=== PATIENT | female | born 1980 | race Caucasian/White ===

== ENCOUNTER 2018-05-09 03:04 | Inpatient (IN) | payer MEDICAID, OTHER ==
[2018-05-09] MEDS ORDERED: AMPICILLIN/NS 2 GM/100 ML 2 GM/100 ML BAG IV ONE ×2 (03:18→03:57)
[2018-05-09] MEDS: PITOCin/NS 20 UNIT/1000ML DRIP 20 UNITS/1,000 ML BAG IV SCH ×2 (03:38→04:21)
[2018-05-09] MEDS ORDERED: LACTATED RINGERS 1,000 ML IV SCH (04:00)
[2018-05-09] MEDS ORDERED: PITOCin/NS 20 UNIT/1000ML DRIP 20 UNITS/1,000 ML BAG IV SCH (04:00)
[2018-05-09] MEDS ORDERED: DULCOLAX PR PRN (04:01)
[2018-05-09] MEDS ORDERED: MILK OF MAGNESIA PO PRN (04:01)
[2018-05-09] MEDS ORDERED: TYLENOL PO PRN (04:01)
[2018-05-09] MEDS ORDERED: PHENERGAN PO PRN (04:01)
[2018-05-09] MEDS ORDERED: BENADRYL PO PRN (04:01)
[2018-05-09] MEDS ORDERED: LANSINOH TP PRN (04:01)
[2018-05-09] MEDS ORDERED: TUCKS PAD TP PRN (04:01)
--- NOTE | 2018-05-09 04:13 | History and Physical Report ---
History of Present Illness Date of examination: 05/09/18 Date of admission: 05/09/18 03:07 Chief complaint: Labor History of present illness: 37 year old presents to L&D in active labor 10 cm dilated and feeling urge to push. States no leaking of fluid or vaginal bleeding. Patient received care at [facility]. significant for the following: abnormal 1 hour sugar test (normal 3 hour OGTT); GBS unknown (not resulted on chart); marginal placenta (resolved). labs are as follows: O+, antibody screen negative, rubella immune, RPR nonreactive, hepatitis B surface antigen negative, HIV negative, GC/CT negative, quad negative, 1 hour sugar test 159 (normal 3 hour OGTT), GBS unknown, pap negative. Past History Past Medical History: no pertinent history Past Surgical History: no surgical history MEDICAL CARE MANAGER History: denies: abnormal PAP smear, chlamydia, gonorrhea, hepatitis B, hepatitis C, herpes, HIV, syphilis, trichomonas Family/Genetic History: none Social history: , lives with family, full code. denies: smoking, alcohol abuse, prescription drug abuse, IV drug use - Obstetrical History Expected Date of Delivery: 05/21/18 Actual Gestation: 38 Week(s) 2 Day(s) : 5 Para: 3 Hx # Term Pregnancies: 4 Number of Pregnancies: 0 Spontaneous Abortions: 1 Induced : 0 Number of Living Children: 3 Medications and Allergies Allergies Allergy/AdvReac Type Severity Reaction Status Date / Time No Known Allergies Allergy Unverified 05/09/18 03:17 Active Meds: Active Medications Acetaminophen (Tylenol) 650 mg PO Q4H PRN PRN Reason: Pain MILD(1-3)/Fever >100.5/CHEN Bisacodyl (Dulcolax) 10 mg MI BID PRN PRN Reason: Constipation Diphenhydramine HCl (Benadryl) 25 mg PO Q6H PRN PRN Reason: Itching Ephedrine Sulfate (Ephedrine Sulfate) 10 mg IV Q2M PRN PRN Reason: Hypotension Ampicillin Sodium (Polycillin/Ns 2 Gm/100 Ml) 2 gm in 100 mls @ 100 mls/hr IV ONCE ONE; Protocol Stop: 05/09/18 04:17 Oxytocin/Sodium Chloride (Pitocin/Ns 20 Unit/1000ml Drip) 20 units in 1,000 mls @ 0 mls/hr IV DIRECT LINDSAY Ampicillin Sodium (Polycillin/Ns 2 Gm/100 Ml) 2 gm in 100 mls @ 100 mls/hr IV ONCE ONE; Protocol Stop: 05/09/18 04:56 Lactated Ringer's (Lactated Ringers) 1,000 mls @ 125 mls/hr IV DIRECT LINDSAY Oxytocin/Sodium Chloride (Pitocin/Ns 20 Unit/1000ml Drip) 20 units in 1,000 mls @ 125 mls/hr IV DIRECT LINDSAY Ibuprofen (Motrin) 600 mg PO Q6H LINDSAY Magnesium Hydroxide (Milk Of Magnesia) 30 ml PO HS PRN PRN Reason: Constipation Multi-Ingredient Ointment (Lansinoh) 1 applic TP PRN PRN PRN Reason: Sore Nipples Promethazine HCl (Phenergan) 25 mg PO Q6H PRN PRN Reason: Nausea And Vomiting Sodium Chloride (Sodium Chloride Flush Syringe 10 Ml) 10 ml IV PRN NR Witch Nieves/Glycerin (Tucks Pad) 1 each TP PRN PRN PRN Reason: Hemorrhoid/cleansing/soothing Review of Systems All systems: negative (contractions) - Vital Signs Vital signs: Vital Signs Pulse BP 62 144/76 05/09/18 03:12 05/09/18 03:12 Temp Pulse Resp BP Pulse Ox 96.6 F L 62 20 144/76 05/09/18 03:20 05/09/18 03:20 05/09/18 03:20 05/09/18 03:20 - Physical Exam Abdomen: Positive: normal appearance, soft. Negative: distention, tenderness, guarding, rigidity Genitourinary (Female): Positive: normal external genitalia, normal perenium. Negative: perineal/vulvar lesions Vagina: Positive: normal moisture Uterus: Positive: enlarged (size=dates) Anus/Rectum: Positive: normal perianal skin Extremities: Positive: normal. Negative: tenderness, edema - Obstetrical FHR: category 1 Uterine Contraction Monitor Mode: External Cervical Dilatation: 10 Cervical Effacement Percentage: 100 station: 0 Uterine Contraction Pattern: Regular Uterine Contraction Intensity: Moderate Results All other labs normal. Assessment and Plan A: at 38 weeks, 2 days gestation. Active advanced labor. GBS unknown. P: Admit. Ampicillin IV. Anticipate .
--- NOTE | 2018-05-09 04:22 | Procedure Note ---
OB Delivery Note - Delivery Date of Delivery: 05/09/18 Surgeon: ZAKI BECKER Estimated blood loss: 200cc - Vaginal Delivery presentation: vertex Delivery position: OA Intrapartum events: precipitous labor- <3hr Delivery induction: none Delivery monitor: external FHT, external uterine Route of delivery: Delivery placenta: spontaneous Delivery cord: 3 umbilical vessels Episiotomy: none Delivery laceration: none Anesthesia: none Delivery comments: Spontaneous vaginal delivery of liveborn female infant weighing 6 lb. 5 oz. at 03:29 over intact perineum with apgars of 8/9. Baby placed immediately on mother's chest after . Spontaneous cry and respirations. Baby bulb suctioned and dried. 3 vessel cord double clamped and cut after cessation of pulsation. Spontaneous delivery of intact placenta and membranes by arechiga mechanism at 03:36. EBL 200 cc. Pitocin to IV fluids after delivery of placenta. Fundus firm and midline. Vaginal sweep negative. No lacerations noted. Sponge count correct.
[2018-05-09] MEDS ORDERED: SODIUM CHLORIDE FLUSH SYRINGE 10 ML IV NR (05:00)
[2018-05-09 05:08] LABS: Hematocrit 41.1 % (30.3-42.9); Hemoglobin 13.6 gm/dl (10.1-14.3); Mean Corpuscular HGB Conc 33 % (30-34); Mean Corpuscular Volume 94 fl (79-97); Red Blood Count 4.35 M/mm3 (3.65-5.03); Red Cell Distribution Width 15.2 % (13.2-15.2)
[2018-05-09 05:39] LABS: Platelet Count 120 K/mm3 (140-440)
[2018-05-09] MEDS: IBUPROFEN PO SCH ×4 (06:07→23:00)
[2018-05-09 07:52] LABS: Alanine Aminotransferase 65 units/L (7-56); Albumin 2.7 g/dL (3.9-5); BUN/Creatinine Ratio 20; Blood Urea Nitrogen 10 mg/dL (7-17); Calcium 8.5 mg/dL (8.4-10.2); Hemolysis Index 42; Uric Acid 4.9 mg/dL (3.5-7.6)
--- NOTE | 2018-05-09 11:23 | Event Note ---
Date: 05/09/18 37yo G 5 P 4 0 1 4 s/p precipitous of a viable term female infant on 05/09/18 @ 03:29. Due to slightly elevated blood pressure during labor & immediatley and low platelet count, PIH labs ordered. BPs 115/42, 125/54, 106/49. PIH labs: Plt 120, UA 4.9, AST 44, ALT 65. Pt denies headache, visual disturbances or RUQ pain. Consulted Dr. Gonzalez about possible HELLP syndrome. Per MD, HELLP syndrome is unlikely. She recommended STAT hepatitis panel. Plan of care discussed with patient and her 18yo daughter. All questions answered. Pt voiced understanding.
[2018-05-09 12:58] LABS: Hepatitis C Virus Antibody Non-Reactive (NonReactive)
[2018-05-09 16:54] LABS: Hematocrit 32.3 % (30.3-42.9); Hemoglobin 11.1 gm/dl (10.1-14.3)
[2018-05-09 19:03] LABS: Bilirubin,Urine NEG (Negative); Blood,Urine LG (Negative); Color,Urine Red (Yellow); Urobilinogen,Urine < 2.0 mg/dL (<2.0)
[2018-05-09 19:04] LABS: RBC,Urine > 182.0 /HPF (0.0-6.0)
[2018-05-10] MEDS: IBUPROFEN PO SCH ×2 (05:17→11:44)
[2018-05-10 11:22] LABS: Hematocrit 32.5 % (30.3-42.9); Mean Corpuscular HGB Conc 34 % (30-34); Mean Corpuscular Volume 93 fl (79-97); Platelet Count 109 K/mm3 (140-440); Red Blood Count 3.49 M/mm3 (3.65-5.03); Red Cell Distribution Width 15.1 % (13.2-15.2)
[2018-05-10 11:35] LABS: Alanine Aminotransferase 56 units/L (7-56); Albumin 2.8 g/dL (3.9-5); BUN/Creatinine Ratio 15; Blood Urea Nitrogen 9 mg/dL (7-17); Calcium 8.4 mg/dL (8.4-10.2); Hemolysis Index 13
--- NOTE | 2018-05-10 11:40 | Progress Note ---
Assessment and Plan A: PPD#1 s/p Previous elevated B/P; Resolved GDM Elevated Liver enzymes (AST 44, ALT 65); Negative Hepatitis panel Stable P: Routine PP orders Repeat CBC/CMP Consult Dr. Damian for management elevated liver enzymes Subjective - Subjective Date of service: 05/10/18 Principal diagnosis: PPD#1 s/p Interval history: See H&P and delivery note Patient reports: appetite normal, voiding normally, pain well controlled, flatus, ambulating normally, no bowel movement : doing well Objective - Vital Signs Latest vital signs: Vital Signs Temp Pulse Resp BP 05/10/18 08:01 98.3 F 59 L 18 104/47 05/09/18 20:00 98.7 F 74 16 99/74 05/09/18 16:40 98.4 F 59 L 18 103/55 05/09/18 11:57 97.6 F 55 L 18 102/43 Intake and Output 05/09/18 05/10/18 05/10/18 23:59 07:59 15:59 Intake Total 360 500 240 Output Total 800 Balance -440 500 240 Intake: Oral 360 200 240 Intake, Free Water 300 Output: Urine 800 Void 800 Other: Total, Intake Amount 360 200 240 Total, Output Amount 800 # Voids Void 2 - Exam Breasts: Present: normal, Cardiovascular: Present: Regular rate, Normal S1, Normal S2, No murmurs Lungs: Present: Clear to auscultation, Normal air movement Abdomen: Present: normal appearance, soft, normal bowel sounds. Absent: distention Vulva: both: normal Uterus: Present: firm, fundal height below umbilicus (-1) Extremities: Present: normal Deep Tendon Reflex Grade: Normal +2 - Labs Labs: Abnormal lab results 05/09/18 05/10/18 05/10/18 Range/Units 18:15 10:37 10:37 WBC 4.4 L (4.5-11.0) K/mm3 RBC 3.49 L (3.65-5.03) M/mm3 Plt Count 109 L (140-440) K/mm3 Chloride 109.5 H (98-107) mmol/L Carbon Dioxide 20 L (22-30) mmol/L Creatinine 0.6 L (0.7-1.2) mg/dL Alkaline Phosphatase 307 H (35-129) units/L Total Protein 5.3 L (6.3-8.2) g/dL Albumin 2.8 L (3.9-5) g/dL Urine WBC (Auto) 12.0 H (0.0-6.0) /HPF
[2018-05-10 17:19] VITALS: BP 108/48
[2018-05-11] MEDS ORDERED: BOOSTRIX IM ONE (06:00)
== END 2018-05-10 19:00 | disposition home or self-care (01) | DRG 807 ==
LOC: TRG 03:04 → LD 03:07 → OB 04:55
PROVIDERS: ADMIT Obstetrics & Gynecology; ATTEND Obstetrics & Gynecology
PROC: 10E0XZZ Delivery of Products of Conception, External Approach (ICD-10-PCS; principal; 2018-05-09)
DX: O24.429 Gestational diabetes mellitus in childbirth, unspecified control (principal); Z37.0 Single live birth; O62.3 Precipitate labor; Z3A.38 38 weeks gestation of pregnancy
CPT/HCPCS: 36415; 80053; 81001; 84550; 85014; 85018; 85027; 86592; 86705; 86706; 86708; 86709; 86803; 86850; 86900; 86901; G0378; J0290; J2590